=== PATIENT | female | born 1935 | race Caucasian/White ===

== ENCOUNTER 2023-08-09 06:33 | Emergency (ER) | payer MEDICARE, OTHER, SELFPAY ==
[2023-08-09 06:37] VITALS: BP 158/60
--- NOTE | 2023-08-09 06:54 | ED.GENMED ---
History of Present Illness
General
Chief Complaint: Fall
Source: spouse and family
Exam Limitations: dementia
Time Seen by Provider: 08/09/23 06:39
Travel History
Have you had any contact with someone who has COVID-19?: Unable to Answer
Do you have any symptoms of coronavirus? Fever > 100 degrees, chills, cough, shortness of breath, sore throat, loss of taste or smell, muscle aches, or headache?: No
History of Present Illness
History of Present Illness:
88-year-old female who gently slid out of her chair this morning. No trauma. Family is here primarily for ongoing weakness over the last week or so. Not because of any trauma related to this fall. There really was no fall per the family was more
of a gentle slide. Patient has no complaints. Significant dementia history. Patient's daughter felt she may have been warm the other day she complained of some fatigue with exertion.
Past History
Past History
ED Past Medical History: HTN, Hypercholesterolemia and Other (Dementia)
Social History
Tobacco: Non-smoker
Personal:
Living: with family
Employment: Retired
Review of Systems
Review of Systems
Unable to obtain full review of systems at this time due to: dementia
All Other Systems: Not applicable
Phy Exam
Physical Exam
Physical Exam:
GENERAL: Alert. Follows commands. Really not oriented at all. Had to look at her daughter for her name. No signs of scalp trauma.
EYE: Orbits normal.
NECK: Supple, nontender
ENT: Pharynx without erythema
CARDIAC: Regular rate and rhythm without any obvious murmurs.
LUNGS: Clear breath sounds,normal
ABDOMEN: Soft, without focal tenderness or distention
NEUROLOGICAL: Alert. Grossly nonfocal. But not oriented
SKIN: Warm and dry, no rash or lesion, no discoloration, skin intact.
MUSCULOSKELETAL: Chronic appearing bilateral lower extremity edema. Stockings in place
PSYCH: Normal and appropriate interaction.
Course
Orders/Labs/Results
Orders:
Orders
08/09/23 06:53
Electrocardiogram (*1) Urgent
Reason for Study: Other
Other Reason for Exam: sepsis
EKG- Treatment ONCE
IV Insert/Care/Rem.- Treatment PRN
Straight cath- Treatment ONCE
CR Chest - 2 Views Urgent
Comment:
Reason For Exam: sob fatigue
08/09/23 06:56
CT Head W/o Iv Contrast Urgent
Comment:
Reason For Exam: Weakness, dementia. Fall.
08/09/23 07:25
Basic Metabolic Panel Urgent
COVID-19 Antigen Urgent
Source: Nasal Swab
Complete Blood Count/With Diff Urgent
Troponin I Urgent
Influenza A+B Rapid Molecular Urgent
DEANGELO Source: Nasal Swab
Specimen Description:
08/09/23 08:47
Urinalysis Reflex To Culture Urgent
Date Specimen was Collected: 08/09/23
Time Specimen was Collected: 08:46
Urine Microscopic Reflex Cult Urgent
Urine Culture Urgent
DEANGELO Source: U
Specimen Description:
Date Specimen was Collected: 08/09/23
Time Specimen was Collected: 08:46
08/09/23 09:47
Case Management Consult ONCE
Case Management Consult: Discharge Planning
08/09/23 09:49
CefTRIAXone [Rocephin] 1,000 mg IV NOW STA
08/09/23 10:09
Sterile Water [Sterile Water For Injection] 10 ml .ROUTE .[facility]-MED ONE
Abnormal Lab Results
08/09/23 08/09/23
07:25 08:47
Absolute Lymphs (auto) 1.0 L 10^3/uL
(1.2-3.4)
Absolute Monos (auto) 0.7 H 10^3/uL
(0.1-0.6)
Lymphocytes % 16.9 L %
(20.5-51.1)
Monocytes % 11.8 H %
(1.7-9.3)
BUN 22 H mg/dl
(7-17)
Glucose 111 H mg/dl
(70-99)
Urine Nitrite (Reflex) Positive A
(Negative)
Leukocyte Esterase Rfl Trace A
(Negative)
Urine Bacteria (Reflex) Many A
(Negative)
08/09/23 07:25
08/09/23 07:25
Vital Signs
Initial and Last Documented VS:
Initial Vital Signs
Temp Pulse Resp BP
97.7 F 87 18 158/60
08/09/23 06:37 08/09/23 06:37 08/09/23 06:37 08/09/23 06:37
Last Documented Vital Signs
Temp Pulse Resp BP Pulse Ox
97.7 F 97 18 136/78 97
08/09/23 06:37 08/09/23 11:30 08/09/23 06:37 08/09/23 10:26 08/09/23 10:26
MDM/Problems Addressed
Differential Diagnosis Includes:
Patient here not related to any fall issue but more for general weakness fatigue possible low-grade fever recently. Workup including cardiac infectious. No signs of acute neurologic issues.
*Pulse Oximetry
Patient hypoxic: no
*EKG
Interpreted by ED Provider?: Yes
Interpretation: normal
Comparison EKG: no comparison EKG present
Heart Rate: 78
Rate: normal
Rhythm: sinus
[place]: normal axis
Interval: normal interval
QRS Pattern: normal QRS
Ischemia: no ischemia
Update Note
Update Note:
Patient cleared for discharge medically. Possible UTI. ADL issues with the family. Case management is involved. Looking for respite care.
ED Attending Note
-
Portions of this chart may have been created with voice recognition software.� Occasional wrong word or��sound alike� substitutions may have occurred due to the inherent limitations of voice recognition software.
Discharge Plan
Departure
Patient Disposition: Other
Date of Disposition: 08/09/23
Time of Disposition: 12:07
Patient with high blood pressure during this ER visit?: Yes
Discharge Problem:
General weakness, Possible UTI, Dementia history
Instructions: Urinary Tract Infection, Adult (DC), Generalized Weakness (DC), BLOOD PRESSURE
Prescriptions:
New
cefdinir 300 mg capsule
300 mg PO BID 7 Days Qty: 14 0RF
Referrals:
Ayesha Weber DO [Family Provider] - Follow up in 2-3 days
Interventions
Interventions:
*Risk Screen - Suicide Last Done: 08/09/23 06:37
*General Assessment Last Done: 08/09/23 06:37
*Neglect/Abuse Screening Last Done: 08/09/23 06:37
ED- Fall Risk Assessment Last Done: 08/09/23 15:30
*ED COVID-19 Vaccine History Last Done: 08/09/23 10:24
*Nursing Disposition Last Done: 08/09/23 15:30
ED-Musculoskeletal Assessment Last Done: 08/09/23 08:03
ED- Neurological Assessment Last Done: 08/09/23 08:03
ED-Skin Assessment Last Done: 08/09/23 08:03
Discharge Date and Time
Discharge Date/Time: 08/09/23 15:30
[2023-08-09 07:15] VITALS: BMI 38.1
[2023-08-09 07:41] LABS: % Basophils 0.7 % (0-2); % Eosinophils 3.1 % (0-6); % Immature Granulocytes 0.2 % (0-0.5); % Lymphocytes 16.9 % (20.5-51.1); % Monocytes 11.8 % (1.7-9.3); % Neutrophils 67.3 % (42.2-75.2); Absolute Eosinophils 0.2 10^3/uL (0-0.7); Absolute Monocytes 0.7 10^3/uL (0.1-0.6); Hematocrit 40.9 % (37.0-47.0); Hemoglobin 13.7 g/dL (12.0-16.0); Mean Corp Hgb Conc. 33.5 g/dL (33.0-37.0); Mean Corpuscular Volume 89.5 fL (81.0-99.0); Mean Platelet Volume 9.6 fL (7.4-10.4); Nucleated Red Blood Cells % 0 %; Platelet Count 261 10^3/uL (130-400); Red Blood Cell Count 4.57 10^6/uL (4.20-5.40); Red Cell Dist. Width 13.7 % (11.5-14.5); White Blood Cell Count 5.9 10^3/uL (4.8-10.8)
[2023-08-09 07:49] LABS: Blood Urea Nitrogen 22 mg/dl (7-17); Calcium 9.4 mg/dl (8.4-10.2); Carbon Dioxide 29 mmol/L (22-30); Chloride 104 mmol/L (98-107); Estimated Creatinine Clearance 62 ml/min; Glucose 111 mg/dl (70-99); Sodium 137 mmol/L (135-145); eGFR > 60.00
[2023-08-09 07:51] LABS: COVID-19 Antigen Negative (Negative)
[2023-08-09 07:59] LABS: Troponin I < 0.012 ng/ml
[2023-08-09 09:08] LABS: Urine Albumin Negative (Neg - Trace); Urine Bilirubin Negative (Negative); Urine Character Clear (Clear); Urine Color Yellow; Urine Glucose Negative (Negative); Urine Ketone Negative (Negative); Urine Leukocyte Trace (Negative); Urine Nitrite Positive (Negative); Urine Occult Blood Negative (Negative); Urine Specific Gravity 1.015 (<1.030); Urine Urobilinogen Negative (Neg - 1+)
[2023-08-09 09:29] LABS: Urine Mucus Few
[2023-08-09 09:30] LABS: Urine Bacteria Many (Negative); Urine Red Blood Cell 0-2 /HPF (0-2); Urine Squamous Cell 0-2 /LPF (Few)
[2023-08-09] MEDS: ROCEPHIN 1000 MG IV (10:20)
--- NOTE | 2023-08-09 10:21 | CM ---
Addendum entered by Lynn Anderson RN 08/09/23 13:32:
Plan for transition to [facility]:
[facility]
Report
[phone]

Addendum entered by Lynn Anderson RN 08/09/23 13:11:
[facility] does not do SNF respite.
Patient's is agreeable to [facility]. CM left message for [facility] admission coordinator.
Addendum entered by Lynn Anderson RN 08/09/23 12:49:
[facility] is unable to accept.
Addendum entered by Lynn Anderson RN 08/09/23 11:54:
declined [facility], and [facility]. [facility] does not do respite beds.
CM awaiting acceptance from [facility] and [facility].
Addendum entered by Lynn Anderson RN 08/09/23 11:01:
Family is interested in [facility]. Yenni from admissions will discuss private pay options with family.
Original Note:
CM spoke with patient's and daughter in room. and daughter assert that patient is becoming more difficult to manage at home due to 's physical infirmity. CM discussed discharge options as SNF under respite or home with
increased services. Patient does have palliative Care through [facility] and [facility] [facility] services 5 hours twice a week.
is agreeable to referrals to [facility], [facility], [facility], [facility] and [facility]. Referrals sent via [facility].
CM will await acceptance and discuss options with family.
[2023-08-09 10:26] VITALS: BP 136/78
--- NOTE | 2023-08-12 10:41 | ED.ADDNOTE ---
ED Addendum
ED Addendum
ED Addendum Note:
urine pos e coli
garvey sensitive
on cefdinir.
no treatment change
--- NOTE | 2023-08-18 15:49 | ED.GENMED ---
History of Present Illness
General
Chief Complaint: Fall
Source: family
Time Seen by Provider: 08/09/23 06:39
Travel History
Have you had any contact with someone who has COVID-19?: Unable to Answer
Do you have any symptoms of coronavirus? Fever > 100 degrees, chills, cough, shortness of breath, sore throat, loss of taste or smell, muscle aches, or headache?: No
History of Present Illness
History of Present Illness:
This is an addendum history and physical exam from a patient visit from 08/09/2023. Patient apparently slid out of her wheelchair. No significant trauma. ADL issues at home.
Past History
Past History
ED Past Medical History: HTN, Hypercholesterolemia, Hypothyroidism, Psychiatric (Depression), Other (Gastroparesis) and Other (Dementia)
Phy Exam
Physical Exam
Physical Exam:
GENERAL: Alert. Generally weak appearing nontoxic. No signs of scalp trauma or any other significant trauma
EYE: Orbits normal.
NECK: Supple
CARDIAC: Regular rate and rhythm without any obvious murmurs.
LUNGS: Clear breath sounds,normal
ABDOMEN: Soft, without focal tenderness or distention
NEUROLOGICAL: Alert. Dementia. Grossly nonfocal
SKIN: Warm and dry
Course
Orders/Labs/Results
Orders:
Orders
08/09/23 06:53
Electrocardiogram (*1) Urgent
Reason for Study: Other
Other Reason for Exam: sepsis
EKG- Treatment ONCE
IV Insert/Care/Rem.- Treatment PRN
Straight cath- Treatment ONCE
CR Chest - 2 Views Urgent
Comment:
Reason For Exam: sob fatigue
08/09/23 06:56
CT Head W/o Iv Contrast Urgent
Comment:
Reason For Exam: Weakness, dementia. Fall.
08/09/23 07:25
Basic Metabolic Panel Urgent
COVID-19 Antigen Urgent
Source: Nasal Swab
Complete Blood Count/With Diff Urgent
Troponin I Urgent
Influenza A+B Rapid Molecular Urgent
DEANGELO Source: Nasal Swab
Specimen Description:
08/09/23 08:47
Urinalysis Reflex To Culture Urgent
Date Specimen was Collected: 08/09/23
Time Specimen was Collected: 08:46
Urine Microscopic Reflex Cult Urgent
Urine Culture Urgent
DEANGELO Source: U
Specimen Description:
Date Specimen was Collected: 08/09/23
Time Specimen was Collected: 08:46
08/09/23 09:47
Case Management Consult ONCE
Case Management Consult: Discharge Planning
08/09/23 09:49
CefTRIAXone [Rocephin] 1,000 mg IV NOW STA
08/09/23 10:09
Sterile Water [Sterile Water For Injection] 10 ml .ROUTE .[facility]MED ONE
Abnormal Lab Results
08/09/23 08/09/23
07:25 08:47
Absolute Lymphs (auto) 1.0 L 10^3/uL
(1.2-3.4)
Absolute Monos (auto) 0.7 H 10^3/uL
(0.1-0.6)
Lymphocytes % 16.9 L %
(20.5-51.1)
Monocytes % 11.8 H %
(1.7-9.3)
BUN 22 H mg/dl
(7-17)
Glucose 111 H mg/dl
(70-99)
Urine Nitrite (Reflex) Positive A
(Negative)
Leukocyte Esterase Rfl Trace A
(Negative)
Urine Bacteria (Reflex) Many A
(Negative)
08/09/23 07:25
08/09/23 07:25
Vital Signs
Initial and Last Documented VS:
Initial Vital Signs
Temp Pulse Resp BP
97.7 F 87 18 158/60
08/09/23 06:37 08/09/23 06:37 08/09/23 06:37 08/09/23 06:37
Last Documented Vital Signs
Temp Pulse Resp BP Pulse Ox
97.7 F 97 18 136/78 97
08/09/23 06:37 08/09/23 11:30 08/09/23 06:37 08/09/23 10:26 08/09/23 10:26
*Pulse Oximetry
Patient hypoxic: no
*Critical Care Note
Total Time (30-74mins, 75-104mins- exclusive of procedures): Not Applicable
Update Note
Update Note:
Patient with ADL issues. Placement issues. Seen by case management. Referred for SNF admission. Antibiotics for possible UTI.
ED Attending Note
-
Portions of this chart may have been created with voice recognition software.� Occasional wrong word or��sound alike� substitutions may have occurred due to the inherent limitations of voice recognition software.
Discharge Plan
Departure
Patient Disposition: Other
Date of Disposition: 08/09/23
Time of Disposition: 12:07
Patient with high blood pressure during this ER visit?: Yes
Discharge Problem:
General weakness, Possible UTI, Dementia history
Instructions: Urinary Tract Infection, Adult (DC), Generalized Weakness (DC), BLOOD PRESSURE
Prescriptions:
New
cefdinir 300 mg capsule
300 mg PO BID 7 Days Qty: 14 0RF
Referrals:
Ayesha Weber DO [Family Provider] - Follow up in 2-3 days
Interventions
Interventions:
*Risk Screen - Suicide Last Done: 08/09/23 06:37
*General Assessment Last Done: 08/09/23 06:37
*Neglect/Abuse Screening Last Done: 08/09/23 06:37
ED- Fall Risk Assessment Last Done: 08/09/23 15:30
*ED COVID-19 Vaccine History Last Done: 08/09/23 10:24
*Nursing Disposition Last Done: 08/09/23 15:30
ED-Musculoskeletal Assessment Last Done: 08/09/23 08:03
ED- Neurological Assessment Last Done: 08/09/23 08:03
ED-Skin Assessment Last Done: 08/09/23 08:03
Discharge Date and Time
Discharge Date/Time: 08/09/23 15:30
== END 2023-08-09 15:30 | disposition other institution (70) ==
LOC: EMR 06:33
PROVIDERS: EMERGENCY PHYSICIAN Emergency Medicine; FAMILY PHYSICIAN Student in an Organized Health Care Education/Training Program
DX: R53.1 Weakness (principal); F03.90 Unspecified dementia, unspecified severity, without behavioral disturbance, psychotic disturbance, mood disturbance, and anxiety; W05.0XXA Fall from non-moving wheelchair, initial encounter; I10 Essential (primary) hypertension; Z11.52 Encounter for screening for COVID-19
CPT/HCPCS: 99285; 96374; 70450; 71046; 80048; 81003; 81015; 84484; 85025; 87086; 87088; 87186; 87502; 87811; 93005

== ENCOUNTER 2024-01-03 05:13 | Inpatient (IN) | payer MEDICARE, OTHER, SELFPAY ==
[2024-01-03] VITALS (83 sets, daily range): BP systolic 77–119; BP diastolic 27–93; BMI 30.6
--- NOTE | 2024-01-03 03:45 | ED.GENMED ---
History of Present Illness
General
Chief Complaint: Change in Mental Status
Source: patient, ambulance crew and skilled nursing
Exam Limitations: clinical condition and dementia
Time Seen by Provider: 01/03/24 03:15
Nursing documentation reviewed up to this point in time: agreed with
History of Present Illness
History of Present Illness:
This is an 88-year-old woman who resides at a local skilled nursing. She has history of dementia, hypertension, hypothyroidism, generalized frailty and weakness who was sent to the ED by skilled nursing staff with concern for possible dehydration stating
patient has sores in her mouth and is currently being treated for oral thrush and has had poor oral intake, difficulty swallowing despite attempts at spoon feeding fluids. There has been no report of fever, no vomiting but report of intermittent
coughing when spoonfed fluids.
Patient is apparently now nonverbal which is unlike her. She apparently normally speaks and is readily conversant.
Family is now at bedside states patient has had a slow decline in mentation, functioning, progressive weakness over the past 3 weeks coinciding with onset of oral thrush 3 weeks ago.
Family reports progression of dementia with intermittent agitation/behavioral issues, more so when care is being rendered. Mirtazapine was recently added.
Past History
Past History
ED Past Medical History: HTN, Hypercholesterolemia, Hypothyroidism, Psychiatric (Depression), Other (Gastroparesis) and Other (Dementia)
ED Past Surgical History: and Orthopedic
Social History
Tobacco: Non-smoker
Alcohol: None
Drug: None
Living: skilled nursing
Family History
Family History: Other (Noncontributory)
Phy Exam
Physical Exam
Physical Exam:
GENERAL: 88-year-old female appears chronically debilitated, bedbound. She is awake, looks to the examiner and follows a few simple commands otherwise nonverbal.
EYE: pupils equal and reactive. anicteric
NECK: Supple, nontender, no meningismus, no significant adenopathy.
ENT: Oral mucosa is significantly dry with thick white plaque covering the tongue. There is moderate pale yellow mucoid substance posterior pharynx as well as coating the soft palate and posterior tongue.
CARDIAC: Regular rate and rhythm. no murmur.
LUNGS: Clear breath sounds bilaterally, no acute respiratory distress, no wheezes/rales/rhonchi
ABDOMEN: Rotund, soft, nondistended, without focal tenderness, normoactive BS.
NEUROLOGICAL: Patient is awake and alert, nonverbal but follows a few simple commands, no focal lateralizing weakness.
SKIN: Warm and dry, normal color, skin intact. No rash. Fair turgor.
MUSCULOSKELETAL: No C/C/E. peripheral pulses are full and equal b/l. No palpable tenderness.
PSYCH: Normal and appropriate interaction.
Course
Orders/Labs/Results
Orders:
Orders
01/03/24 03:14
Electrocardiogram (*1) Urgent
Reason for Study: Fatigue / Weakness
EKG- Treatment ONCE
01/03/24 03:24
Straight cath- Treatment ONCE
0.9% Sodium Chloride 1000 ml [Nss] 1,000 ml IV BOLUS
01/03/24 03:48
Complete Blood Count/With Diff Urgent
Comprehensive Metabolic Panel Urgent
Free T4 Urgent
Lactic Acid Urgent
TSH Reflex To Free T4 Urgent
Urinalysis Reflex To Culture Urgent
Date Specimen was Collected: 01/03/24
Time Specimen was Collected: 03:41
Urine Microscopic Reflex Cult Urgent
Urine Culture Urgent
DEANGELO Source: U
Specimen Description:
Date Specimen was Collected: 01/03/24
Time Specimen was Collected: 03:41
01/03/24 04:10
CR Chest Portable - 1 View Urgent
Comment:
Reason For Exam: cough
Reason Study Needs to be Portable: Unable to Transport
01/03/24 04:58
Admit/Transfer Patient As Directed
Co-Sign Provider:
Level of Care: Inpatient admission
Assign to:: Medical/Surgical
Physician / Group: Marcus
Diagnosis: Dehydration, Thrush, LONI
Reason for Hospitalization: Dehydration, Thrush, LONI
Expected length of stay greater than two midnights?: Yes
ELOS- Estimated Length of Stay in days: 3
I certify the patient meets the requirements for IP care: Yes
01/03/24 05:00
Code Status As Directed
Resuscitation Status: Full Code
Abnormal Lab Results
01/03/24
03:48
MCHC 30.5 L g/dL
(33.0-37.0)
RDW 15.4 H %
(11.5-14.5)
Absolute Neuts (auto) 7.0 H 10^3/uL
(1.4-6.5)
Absolute Monos (auto) 1.4 H 10^3/uL
(0.1-0.6)
Lymphocytes % 12.1 L %
(20.5-51.1)
Monocytes % 14.1 H %
(1.7-9.3)
Sodium 155 H mmol/L
(135-145)
Chloride 116 H mmol/L
(98-107)
BUN 38 H mg/dl
(7-17)
Creatinine 1.2 H mg/dL
(0.6-1.0)
Glucose 135 H mg/dl
(70-99)
TSH (Reflex) 0.14 L uIU/ml
(0.47-4.68)
Free T4 2.86 H ng/dl
(0.78-2.19)
Urine Ketones Trace A
(Negative)
Ur Occult Blood Reflex 1+ A
(Negative)
Urine Nitrite (Reflex) Positive A
(Negative)
Urine Bilirubin 1+ A
(Negative)
Leukocyte Esterase Rfl 1+ A
(Negative)
Urine WBC (Reflex) 16-20 A /HPF
(0-5)
Urine Bacteria (Reflex) Many A
(Negative)
Urine Yeast Few A
(Negative)
01/03/24 03:48
01/03/24 03:48
Vital Signs
Initial and Last Documented VS:
Initial Vital Signs
Temp Pulse Resp BP Pulse Ox
98.9 F 108 22 100/72 98
01/03/24 03:42 01/03/24 03:42 01/03/24 03:42 01/03/24 03:42 01/03/24 03:42
Last Documented Vital Signs
Temp Pulse Resp BP Pulse Ox
98.9 F 108 22 100/72 98
01/03/24 03:42 01/03/24 03:42 01/03/24 03:42 01/03/24 03:42 01/03/24 03:42
MDM/Problems Addressed
Differential Diagnosis Includes:
Concern for acute dehydration, acute kidney injury, occult sepsis, UTI, pneumonia, CVA is less likely.
Borderline hypotension noted.
Labs and urinalysis are pending.
Will initiate IV fluids, check portable chest x-ray.
Consider CT of the head if labs are unrevealing.
Chronic conditions affecting care: HTN and Psychiatric illness
*Radiology
Radiology exam reviewed: preliminary read by ED provider (Portable chest x-ray is unremarkable. No evidence of infiltrate.)
*Pulse Oximetry
Patient hypoxic: no
*EKG
Interpreted by ED Provider?: Yes
Comparison EKG: no changes (Unchanged from previous August 2023 save her heart rate has increased from 78 to now 106)
Rate: tachycardiac
Rhythm: sinus
[place]: normal axis
Interval: normal interval
QRS Pattern: normal QRS
Ischemia: no ischemia
*Product Marketing Engineer Interpretation
Rate: tachycardiac
Interpretation: abnormal
Rhythm: sinus
*Critical Care Note
Total Time (30-74mins, 75-104mins- exclusive of procedures): Not Applicable
Update Note
Update Note:
01/03/2024 0436 AM
Labs reveal elevated sodium of 155 as well as elevated creatinine of 1.2 which is trended up from previous in August, most consistent with acute dehydration.
Urinalysis suspicious for UTI. Nitrite positive. Leukocyte Estrace positive. Microscopic is pending.
Will continue IV fluids, oral hygiene and admit to hospitalist service.
ED Attending Note
-
Portions of this chart may have been created with voice recognition software.� Occasional wrong word or��sound alike� substitutions may have occurred due to the inherent limitations of voice recognition software.
Discharge Plan
Departure
Patient Disposition: Admit
Date of Disposition: 01/03/24
Time of Disposition: 04:34
Admit to: Med/Surg
Admit to doctor: Marcus
Presentation/result/management discussed w/ accepting MD/DO: Hospitalist
Discharge Problem:
Acute kidney injury, Acute dehydration, Candidiasis of mouth, progressive dementia, Acute UTI
Interventions
Interventions:
*Risk Screen - Suicide Last Done: 01/03/24 03:42
*General Assessment Last Done: 01/03/24 03:42
*Neglect/Abuse Screening Last Done: 01/03/24 03:42
ED- Fall Risk Assessment Last Done: 01/03/24 04:00
*ED COVID-19 Vaccine History Last Done: 01/03/24 03:42
ED- Neurological Assessment Last Done: 01/03/24 04:00
ED- Cardiac Assessment Last Done: 01/03/24 04:00
[2024-01-03] MEDS: NSS 1000 IV ×2 (03:50→05:58)
[2024-01-03 03:56] LABS: % Basophils 0.3 % (0-2); % Eosinophils 0.5 % (0-6); % Immature Granulocytes 0.4 % (0-0.5); % Lymphocytes 12.1 % (20.5-51.1); % Monocytes 14.1 % (1.7-9.3); % Neutrophils 72.6 % (42.2-75.2); Absolute Eosinophils 0.1 10^3/uL (0-0.7); Absolute Lymphocytes 1.2 10^3/uL (1.2-3.4); Absolute Monocytes 1.4 10^3/uL (0.1-0.6); Hematocrit 45.5 % (37.0-47.0); Hemoglobin 13.9 g/dL (12.0-16.0); Mean Corp Hgb Conc. 30.5 g/dL (33.0-37.0); Mean Corpuscular Hgb 28.7 pg (27.0-31.0); Mean Corpuscular Volume 93.8 fL (81.0-99.0); Mean Platelet Volume 10.3 fL (7.4-10.4); Nucleated Red Blood Cells % 0 %; Platelet Count 255 10^3/uL (130-400); Red Blood Cell Count 4.85 10^6/uL (4.20-5.40); Red Cell Dist. Width 15.4 % (11.5-14.5); White Blood Cell Count 9.7 10^3/uL (4.8-10.8)
[2024-01-03 04:15] LABS: ALT (SGPT) 21 U/L (0-35); AST (SGOT) 36 U/L (14-36); Albumin 3.6 g/dl (3.5-5.0); Alkaline Phosphatase 83 U/L (38-126); Blood Urea Nitrogen 38 mg/dl (7-17); Carbon Dioxide 29 mmol/L (22-30); Chloride 116 mmol/L (98-107); Glucose 135 mg/dl (70-99); Sodium 155 mmol/L (135-145); Total Bilirubin 0.8 mg/dl (0.2-1.3); Total Protein 7.5 g/dl (6.3-8.2); eGFR 44.08
--- NOTE | 2024-01-03 04:20 | EDRN ---
On arrival patient had a small formed BM in her brief, patient was cleaned up and clean brief placed on patient, attempted to straight cath patient, she was grabbing at staff and screaming, was able to get some urine to send for sample, patient
cleaned up again and purwick placed. Once done cleaning up patient, had family come back to bedside with her.
[2024-01-03 04:21] LABS: Urine Albumin Negative (Neg - Trace); Urine Bilirubin 1+ (Negative); Urine Character Slightly Cloudy (Clear); Urine Color Amber; Urine Glucose Negative (Negative); Urine Ketone Trace (Negative); Urine Leukocyte 1+ (Negative); Urine Nitrite Positive (Negative); Urine Occult Blood 1+ (Negative); Urine Specific Gravity 1.025 (<1.030); Urine Urobilinogen 1+ (Neg - 1+)
[2024-01-03 04:45] LABS: TSH Reflex To Free T4 0.14 uIU/ml (0.47-4.68)
--- NOTE | 2024-01-03 04:45 | EDRN ---
Provided some mouth care, patient has large amount of thick mucus like substance on her tongue yellow in color
[2024-01-03 04:52] LABS: Urine Amorphous Seen; Urine Hyaline Cast >15 /LPF (0-2); Urine Squamous Cell >30 /LPF (Few)
[2024-01-03 04:53] LABS: Urine Bacteria Many (Negative); Urine Triple Phosphate Crystal Seen; Urine Yeast Few (Negative)
[2024-01-03 04:55] LABS: Urine White Cell 16-20 /HPF (0-5)
--- NOTE | 2024-01-03 04:55 | EDRN ---
Dr. Velazquez in at bedside working on admission
[2024-01-03 04:58] LABS: Urine Mucus Many
--- NOTE | 2024-01-03 05:05 | HPS.HSE ---
Addendum entered and electronically signed by Pete Velazquez DO 01/03/24 06:11:
A/P: Septic Shock
UTI
Patient with persistent hypotension in the ED despite fluid bolus x 2 liters.
Levophed initiated for BP support.
UA potentially c/w infection and verbal report from ED staff is purulent appearing urine.
Begin ceftriaxone for now pending culture data.
Reviewed with family - now present at the bedside.
Continue current treatment and follow for improvement.
Patient with advanced dementia and recent decline.
Family plans to bring patient's in later today and may address / adjust goals of care at that time.
Original Note:
Family Physician
-
Family Physician: Fabrizio Sullivan
Chief Complaint
-
Unable to eat
History of Present Illness
Patient is an 88y F with PMH significant for advanced dementia who presents to ED from [place] for evaluation of inability to eat, oral sores and dehydration. No history is able to be obtained from patient due to apparent baseline level of dementia.
History obtained from IN record and discussion with ED staff. Patient reportedly developed oral 'sores' at the IN some time ago. She was started on 'Magic Mouthwash' at the IN on 12/15. Staff notes that she has continued not to take in PO solids
or liquids. She has been progressively more frail / weak appearing. Staff has been trying to encourage intake with spoon feedings. This evening, patient had coughing spell during one such attempt which prompted evaluation in the ED.
In the ED, patient appears comfortable. She is awake and will follow commands. She denies any pain at present.
Medical History
Past Medical History
Past Medical History: Reports Other
Additional Past Medical History:
Dementia with Behavioral Disturbance
Hypothyroidism
Hypertension
Osteoporosis
Past Surgical History: Reports Other (Unknown)
Social History
Unable to obtain full social history at this time due to: Dementia
Family History
Family History: Unable to Obtain
Allergies / Home Medications
Allergies reflects when Allergies were last updated in [employer].
Home Medications with original date entered in [employer]
Allergy/Medication List:
Allergies
Allergy/AdvReac Type Severity Reaction Status Date / Time
bee venom protein (honey bee) Allergy Swelling Verified 01/03/24 03:46
Home Medications
acetaminophen 325 mg tablet 650 mg PO Q4H PRN mild pain / fever 01/03/24
alendronate 70 mg tablet 70 mg PO QWEEK 01/03/24
aspirin 81 mg chewable tablet 81 mg PO DAILY 01/03/24
biotin 5 mg tablet 5 mg PO DAILY 01/03/24
calcium carbonate 500 mg-vitamin D3 10 mcg (400 unit) tablet (Calcium 500 + D) 1 tab PO BID 01/03/24
cholecalciferol (vitamin D3) 50 mcg (2,000 unit) chewable tablet 50 mcg PO DAILY 01/03/24
citalopram 10 mg tablet 20 mg PO DAILY 01/03/24
coQ10 (ubiquinol) 200 mg capsule 200 mg PO BID 01/03/24
levothyroxine 25 mcg tablet 25 mcg PO DAILY 01/03/24
lovastatin 20 mg tablet 20 mg PO QPM 01/03/24
magnesium 200 mg tablet 200 mg PO DAILY 01/03/24
metoprolol succinate 25 mg tablet,extended release 24 hr 25 mg PO DAILY 01/03/24
mirtazapine 7.5 mg tablet 7.5 mg PO BID 01/03/24
multivitamin 1 tab PO DAILY 01/03/24
nystatin 100,000 unit/gram topical powder 1 applic topical DAILY 01/03/24
omega 8-axs-pok-fish oil 300 mg-1,000 mg capsule (Fish Oil) 1 cap PO BID 01/03/24
Review of Systems
-
History Source: Patient (Very limited. Patient denies pain.)
A 12 point ROS was completed and negative except as noted: No
Physical Exam
Vital Signs
Vital Signs
Temp Pulse Resp BP Pulse Ox
98.9 F 108 22 100/72 98
01/03/24 03:42 01/03/24 03:42 01/03/24 03:42 01/03/24 03:42 01/03/24 03:42
Physical Exam
General: Other (88y F in no obvious distress. Awake and interactive.)
HEENT: Other (Edentulous. Dry, white coating on tongue. No visible ulcerations / erosions. Mucoid secretions in posterior oropharynx.)
Respiratory: Other (Decreased at bases - otherwise clear.)
Cardiac: S1/S2 and Regular Rhythm; No Murmur
GI: Soft, Non Tender, Non Distended and Normal Bowel Sounds
Musculoskeletal: No Clubbing, No Cyanosis and No Edema
Neuro: Awake and Alert; No Oriented
Psych: No Agitated
Laboratory Results
-
01/03/24 03:48
01/03/24 03:48
Laboratory Results
Lactic Acid 2.0 mmol/L (0.7-2.0) 01/03/24 03:48
Total Bilirubin 0.8 mg/dl (0.2-1.3) 01/03/24 03:48
AST 36 U/L (14-36) 01/03/24 03:48
ALT 21 U/L (0-35) 01/03/24 03:48
Alkaline Phosphatase 83 U/L (38-126) 01/03/24 03:48
Impression/Plan
-
A/P: Patient is an 88y F with PMH significant for advanced dementia who presents to ED from [place] for evaluation of decreased PO intake and weakness.
Dehydration
LONI
- Admit for further evaluation and treatment.
- Na = 155 and SCr = 1.2 compared to known baseline of 0.8.
- IVFs with 1/4NS for now. Follow for improvement in Na and SCr.
- Evaluate / treat oral intake issues as noted below.
Oral Thrush
- Some degree of oral thrush, though also with mucoid secretions, etc.
- Do not appreciate any gross ulcerations.
- Check SHEILA.
- Begin nystatin S/S as well as fluconazole for now given extent.
- Routine oral care.
- Follow for clinical improvement.
- Speech evaluation to determine most appropriate diet.
Benign Hypertension
- Continue metoprolol with holding parameters to avoid hypotension.
Hypothyroidism
- Current TFTs suggest over-replacement of T4
- Hold T4 supplementation for now.
- Follow for any clinical changes.
- Repeat TFTs in 4-6 weeks off of medication.
Senile Dementia with Behavioral Disturbance
- Stable. Not agitated / anxious at present.
- Continue BID mirtazapine.
- Hold citalopram acutely.
- Monitor for any acute delirium, etc during hospitalization.
Osteoporosis
- Hold alendronate acutely given thrush / problems with oral intake.
DVT Prophylaxis: SCDs
Code Status: Full
[2024-01-03 05:14] LABS: Free T4 2.86 ng/dl (0.78-2.19)
--- NOTE | 2024-01-03 05:30 | EDRN ---
Patients BP started trending down to low 90's and then into the 80s systolic, poke with Dr. Pierson about giving patient more fluids, 2nd liter of Normal saline placed up, tiger texted Dr. Velazquez to inform him of the patients blood pressure trending
down, waiting new orders at this time.
[2024-01-03] MEDS: LEVOPHED 250 IV ×2 (05:56→19:14)
--- NOTE | 2024-01-03 05:57 | EDRN ---
After 2nd liter completes, BP continues to trend down, Dr. Velazquez back at bedside seeing patient and speaking with family, Levophed ordered and started on patient.
[2024-01-03] MEDS: ROCEPHIN 1000 MG IV (06:20)
[2024-01-03] MEDS: STERILE WATER FOR INJECTION 10 ML IV (06:21)
--- NOTE | 2024-01-03 08:06 | PTCARENOTE ---
patient received from ED, assessments per work list. patient drowsy, oriented to self only. skin hot and dry, crusted oral membranes. levophed per work list. incontinent scant dark urine, incontinent small amount loose stool. monitor sinus
tachycardia. bed alarm activated
[2024-01-03 08:34] LABS: INR 1.35; PT 16.5 Sec (11.4-14.6)
[2024-01-03] MEDS: LR 1000 IV ×3 (08:49→21:38)
--- NOTE | 2024-01-03 09:17 | CON.INTV ---
Consultation
Consultation Request
Date/Time Consultation Requested: 01/02
Date/Time Consultation Performed: 01/02
Reason for Consultation: Critical care
Medical History
-
History of Present Illness:
History obtained from family members at bedside, medical records. Patient not a good historian with dementia. 88-year-old female who was brought to [facility] 01/03/2024 from the snf. Patient has had issues with oral intake. There
was a concern regarding dehydration. Per ED records, patient has had slow decline over the last 3 weeks, decrease in mentation, oral thrush. She had recent admission of mirtazapine and for progressive dementia with behavioral issues. Upon arrival
to [facility], afebrile, pulse 108, breathing at 22, blood pressure 100/72, 98%. EKG with tachycardia. Sodium level was found to be 155, creatinine 1.2. Patient was given IV fluids. UA abnormal, started on ceftriaxone. Patient was
initially admitted to IMU but then developed progressive hypotension requiring pressors and admitted to ICU 01/03/2024
Additional history obtained from daughter. Patient has been using a walker but over the last month has been essentially wheelchair-bound. She gets agitated with any type of movement, changing or cleaning. She has had poor intake. She was seen by
a dentist earlier, was diagnosed with thrush but also noted to have an ulcerated lesion in her posterior oropharynx
.
PMH: Hypertension, hypercholesterolemia, hypothyroidism, dementia, history of gastroparesis. History of
Past Medical History
Past Medical History: None (See above)
Past Surgical History: None (See above)
Social History
Tobacco: Non-smoker
Alcohol: None
Drug: None
Personal:
Living: Halfway
Family History
Family History: Other (Noncontributory)
Allergies / Home Medications
Allergies
Allergy/AdvReac Type Severity Reaction Status Date / Time
bee venom protein (honey bee) Allergy Swelling Verified 01/03/24 03:46
Home Medications
�Medication �Instructions �Recorded �Confirmed �Last Taken �Type
acetaminophen 325 mg tablet 650 mg PO Q4H PRN mild pain / fever 01/03/24 01/03/24 Unknown History
alendronate 70 mg tablet 70 mg PO QWEEK 01/03/24 01/03/24 Unknown History
aspirin 81 mg chewable tablet 81 mg PO DAILY 01/03/24 01/03/24 Unknown History
biotin 5 mg tablet 5 mg PO DAILY 01/03/24 01/03/24 Unknown History
calcium carbonate 500 mg-vitamin 1 tab PO BID 01/03/24 01/03/24 Unknown History
D3 10 mcg (400 unit) tablet
(Calcium 500 + D)
cholecalciferol (vitamin D3) 50 50 mcg PO DAILY 01/03/24 01/03/24 Unknown History
mcg (2,000 unit) chewable tablet
citalopram 10 mg tablet 20 mg PO DAILY 01/03/24 01/03/24 Unknown History
coQ10 (ubiquinol) 200 mg capsule 200 mg PO BID 01/03/24 01/03/24 Unknown History
levothyroxine 25 mcg tablet 25 mcg PO DAILY 01/03/24 01/03/24 Unknown History
lovastatin 20 mg tablet 20 mg PO QPM 01/03/24 01/03/24 Unknown History
magnesium 200 mg tablet 200 mg PO DAILY 01/03/24 01/03/24 Unknown History
metoprolol succinate 25 mg 25 mg PO DAILY 01/03/24 01/03/24 Unknown History
tablet,extended release 24 hr
mirtazapine 7.5 mg tablet 7.5 mg PO BID 01/03/24 01/03/24 Unknown History
multivitamin 1 tab PO DAILY 01/03/24 01/03/24 Unknown History
nystatin 100,000 unit/gram topical 1 applic topical DAILY 01/03/24 01/03/24 Unknown History
powder
omega 4-omd-fpq-fish oil 300 1 cap PO BID 01/03/24 01/03/24 Unknown History
mg-1,000 mg capsule (Fish Oil)
Review of Systems
Vitals / Labs / Diagnostic Testing
Vital Signs
Temp Pulse Resp BP Pulse Ox
98.5 F 101 16 105/70 100
01/03/24 08:06 01/03/24 08:00 01/03/24 08:00 01/03/24 08:00 01/03/24 07:57
Lab Data
01/03/24 03:48
01/03/24 03:48
Laboratory Results
01/03/24
07:59
PT 16.5 H
INR 1.35
APTT 32.0
Diagnostic Testing:
Assessment
-
88-year-old female snf resident, history of dementia, hypertension, hypothyroid who presents with failure to thrive, mental status changes, likely dehydration. Patient was given IV fluids, IV antibiotics. Developed worsening hypotension,
admitted to ICU, currently on norepinephrine
Hypotension, suspected sepsis
Abnormal UA
Hypernatremia, likely prerenal
Acute renal insufficiency, creatinine 1.2
Posterior pharyngeal ulcer
Mild thrush
Conditions present prior to admission
Hypertension/hyperlipidemia
Dementia
NH res (memory impairment unit)
DNR
Plan/recommendations
At this time, patient appears to be comfortable but likely prerenal with dry mucous membranes, renal insufficiency
Family relays poor p.o. intake over the past 3 to 4 weeks
Patient has had progressive decline in mentation, more confused, agitated with simple movement, cleaning, changing clothes
Poor oral intake also noted
Moving forward
Continue with IV fluids, pressors as needed
Continue lactated Ringer's
Suspect combination of prerenal state and sepsis, abnormal UA noted
History of E. coli UTI noted in the past
Urine culture pending
Hold beta-ian
I am not convinced that there is thrush on exam. There is a left posterior oropharyngeal ulcer per my review
Consider discontinuing Diflucan. Will review with primary service
Would recommend Dobbhoff tube placement. Reviewed with family. They are unsure if this is what they want to pursue at this time.
I have clarified the patient is DNR
will bring in living well
Family appears to be more interested in making sure patient is comfortable
Continue with supportive care at this time
DVT prophylaxis: Enoxaparin and sequential teds
GI prophylaxis:Not indicated
Reviewed with critical care nursing, pharmacy
Updated daughter and at length at bedside
All questions answered
TCCT 31 min
[2024-01-03] MEDS: MYCOSTATIN ORAL SUSPENSION PO (09:32)
--- NOTE | 2024-01-03 09:35 | PTOTSP ---
Speech Language Pathology
Pt seen for clinical bedside swallow evaluation. Per family at bedside, pt has not been eating/drinking for approximately 2 weeks. P.O. trials of thin liquids (room temperature and cold) and puree provided. With initial thin liquids via straw
(room temperature), oral holding noted. Pt swallowed x5 with entire bolus remaining in oral cavity. Suctioned from oral cavity. Trialed again with full oral holding. Trialed puree with no attempts at bolus manipulation. Eventually suctioned
from oral cavity. Buccal/laryngeal massage, oral prep set, verbal cueing, empty spoon to lips, and downward lingual pressure on spoon ineffective at aiding in initiating swallow. Trialed cold water via straw. Pt demonstrated liking the cold with
facial expression. Initiated swallow x2. Suspect cold temperature provided tactile feedback and aided in swallow initiation. No overt signs of aspiration with minimal swallowed.
Suspect oral dysphagia with oral holding is related to cognitive status, although recent oral thrush is confounding factor.
Recommend:
(1) Continue thin liquids as tolerated (currently ordered clear liquids)
(2) Aspiration precautions: may respond best to cold liquids, single sips via straw, if oral holding suction from oral cavity, if occurs x2 then defer meal tray.
(3) Non-oral meds as able given inconsistent swallow initiation
(4) RETAIL FINANCIAL ANALYST to continue to follow
[2024-01-03] MEDS: DIFLUCAN 200 MG 100 IV (10:35)
--- NOTE | 2024-01-03 12:32 | PTCARENOTE ---
patient reassessed. drowsy, but arouses. oriented to name only. attempted clear liquid by teaspoon. patient only held it in her mouth, requiring oral suction to remove. levophed per work list. bladder scan as noted. post bladder scan, patient voided
shadi concentrated urine via purewick. family at bedside
--- NOTE | 2024-01-03 12:54 | CM ---
CM following re: discharge planning.
Discussed in Rounds, reviewed pt's chart, met with pt. Pt's , pt's daughter Kaela and son at bedside.
Pt is an 88 year old female, admitted with primary dx of Hypotension, suspected sepsis. Abnormal UA.
Pt is a not a great historian, information obtained from daughter Kaela, and son. Per family pt has been diagnosed with Dementia 4 years ago, has been a resident of [facility] memory care unit for 3 months, required assistance with
transferring. Pt has supportive daughter and a son. lives alone in his house and has POA.
Per daughter, she feels that pt will be able to return back to [facility] memory care unit and pt might be able to go to a SNF for a short term rehab.
PT and OT evaluations are pending, pt is not stable for PT/OT today.
PCP: Fabrizio Sullivan
Pharmacy: [facility].
D/C plan: return back to [facility] memory care unit vs [facility] SNF.
CM will follow with discharge plan updates as hospitalization progresses
[2024-01-03] MEDS: MYCOSTATIN ORAL SUSPENSION 5 ML PO (13:19)
--- NOTE | 2024-01-03 13:45 | W.PN.UPDATE ---
Update Note
Progress Note Update
Non-billable entry (H&P signed today 5 AM)
Patient did not pass ST evaluation, DHT indicated (with restraints) but family not ready for that at this time
Currently was on thrush treatment which is now stopped as not clinically present. Also noted to have oral ulcerated lesion
receiving IVF for now
Assessment:
Dehydration
LONI
- continue 1/4 NS for now and follow repeat BMP at 2pm
septic shock from UTI
hypovolemic from dehydration
- on pressors; wean as able
UTI
- continue Rocephin, day 1
- follow cultures
dry mouth, ulcerated lesion
- no evidence of thrush
- stop Diflucan, Nystatin
- routine oral care
Benign Hypertension
- continue metoprolol with holding parameters to avoid hypotension.
Hypothyroidism
- Current TFTs suggest over-replacement of T4
- Hold T4 supplementation for now
- Follow for any clinical changes.
- Repeat TFTs in 4-6 weeks off of medication.
Senile Dementia with Behavioral Disturbance
- Stable. Not agitated / anxious at present.
- Continue BID mirtazapine.
- Hold citalopram acutely.
- Monitor for any acute delirium, etc during hospitalization.
Osteoporosis
- Hold alendronate acutely given thrush / problems with oral intake.
DVT Prophylaxis: SCDs
Code Status: now DNR
[2024-01-03 14:27] LABS: Blood Urea Nitrogen 31 mg/dl (7-17); Calcium 8.8 mg/dl (8.4-10.2); Carbon Dioxide 27 mmol/L (22-30); Chloride 120 mmol/L (98-107); Estimated Creatinine Clearance 42 ml/min; Glucose 143 mg/dl (70-99); Potassium 3.7 mmol/L (3.5-5.1); Sodium 152 mmol/L (135-145); eGFR 54.87
--- NOTE | 2024-01-03 16:20 | PTCARENOTE ---
patient reassessed. lungs with coarse diminished breath sounds. shadi urine noted. purewick in place. pocketing liquids. aspiration precautions maintained. labs sent. hospitalist updated. attempted levophed wean, required increased for MAP to remain
>65
[2024-01-03] MEDS: LOVENOX 40 MG SC (16:56)
--- NOTE | 2024-01-03 20:30 | PTCARENOTE ---
rec'd patient. family at bedside. pt disoriented. levo gtt infusing to maintain MAP >65. SR on monitor. on RA, coarse breath sounds noted. purewick in place. IVF infusing. safe environment maintained. call toure within reach of pt and family, care
ongoing.
[2024-01-04] VITALS (43 sets, daily range): BP systolic 80–129; BP diastolic 43–84; BMI 30.4
--- NOTE | 2024-01-04 00:30 | PTCARENOTE ---
pt reassessed, no changes noted. levo gtt titrated to maintain MAP goal, see worklist. on RA, SR on monitor, IVF infusing. call toure within reach, care ongoing.
[2024-01-04 05:10] LABS: Hematocrit 39.7 % (37.0-47.0); Hemoglobin 12.4 g/dL (12.0-16.0); Mean Corp Hgb Conc. 31.2 g/dL (33.0-37.0); Mean Corpuscular Hgb 29.1 pg (27.0-31.0); Mean Corpuscular Volume 93.2 fL (81.0-99.0); Mean Platelet Volume 10.1 fL (7.4-10.4); Platelet Count 218 10^3/uL (130-400); Red Blood Cell Count 4.26 10^6/uL (4.20-5.40); Red Cell Dist. Width 15.9 % (11.5-14.5); White Blood Cell Count 7.9 10^3/uL (4.8-10.8)
--- NOTE | 2024-01-04 05:20 | PTCARENOTE ---
AM labs sent. pt with minimal UOP overnight, BS for 295ml this morning. purewick in place. pt repositioned with pillows. oral care provided. care ongoing.
[2024-01-04 05:33] LABS: Blood Urea Nitrogen 23 mg/dl (7-17); Calcium 8.6 mg/dl (8.4-10.2); Carbon Dioxide 27 mmol/L (22-30); Chloride 119 mmol/L (98-107); Estimated Creatinine Clearance 46 ml/min; Glucose 131 mg/dl (70-99); Potassium 3.6 mmol/L (3.5-5.1); Sodium 152 mmol/L (135-145); eGFR > 60.00
--- NOTE | 2024-01-04 07:18 | W.PN.INTV ---
Addendum entered and electronically signed by Pedro Simpson MD 01/04/24 14:43:
Plans for transition to hospice noted
Await decision by case management/hospice team
Patient transferred out of ICU. We will sign off. Please call with questions
Original Note:
Today's Communication / Plan
Recommendations
Continue with supportive care, wean pressors as able
Change IV fluids to D5, free water repletion
Wean pressors as able
Bladder scan, incontinence noted
Ongoing discussion regarding goals of care
Assessment
-
88-year-old female intermediate resident, history of dementia, hypertension, hypothyroid who presents with failure to thrive, mental status changes, likely dehydration. Patient was given IV fluids, IV antibiotics. Developed worsening hypotension,
admitted to ICU, currently on norepinephrine
Hypotension, suspected sepsis
Abnormal UA
Hypernatremia, likely prerenal
Acute renal insufficiency, creatinine 1.2
Posterior pharyngeal ulcer
Mild thrush
Conditions present prior to admission
Hypertension/hyperlipidemia
Dementia
NH res (memory impairment unit)
DNR
Plan/recommendations
At this time, patient appears to be comfortable but remains critically ill, on pressors.
Family relays poor p.o. intake over the past 3 to 4 weeks
Unfortunate, unable to take pills, unable to swallow. She pockets the pills
Patient has had progressive decline in mentation, more confused, agitated with simple movement, cleaning, changing clothes
Poor oral intake also noted
According to family at bedside, mental status has not changed since hospital stay
Moving forward
Continue with IV fluids, pressors as needed
Continue lactated Ringer's
Suspect combination of prerenal state and sepsis, abnormal UA noted
History of E. coli UTI noted in the past
Urine culture negative to date
Hold beta-ian
I am not convinced that there is thrush on exam. There is a left posterior oropharyngeal ulcer per my review
Antifungal has been discontinued
Would recommend Dobbhoff tube placement. Reviewed with family.
They are adamant about no nutrition
I have clarified the patient is DNR
Family appears to be more interested in making sure patient is comfortable
They would like hospice involved. They would like patient to be in hospice at [facility]
Continue with supportive care at this time
DVT prophylaxis: Enoxaparin and sequential teds
GI prophylaxis:Not indicated
Reviewed with critical care nursing, pharmacy
Updated son and at length at bedside
All questions answered
TCCT 31 min
Subjective Dataa
Subjective Data
Date of Service:
Date of Service: January 04, 2024
Subjective:
Patient without any significant changes. She denies shortness of breath, chest pain, chest tightness, nausea, abdominal pain. She is unable to take any pills, cannot take any p.o. She remains on pressors, critically ill
Objective Data
Data Reviewed
Vital Signs / I&O / Oxygen:
Vital Signs
Temp Pulse Resp BP Pulse Ox
97.6 F 86 16 106/57 93
01/04/24 07:07 01/04/24 06:30 01/04/24 06:30 01/04/24 06:30 01/04/24 06:30
Intake and Output
01/03/24 01/04/24 01/05/24
06:59 06:59 06:59
Intake Total 3191.5 / 3191.5
Output Total 250 / 250
Balance 2941.5 / 2941.5
SaO2 93
Physical Exam
General: Comfortable
HEENT: Normocephalic, Anicteric, Other (Left posterior oropharyngeal ulcer) and Other (Edentulous)
Cardiovascular: S1-S2, Regular Rhythm, Murmur (n), Rub (n) and Calf Tenderness (n)
Respiratory: Wheeze (n), Crackles (n), Rhonchi (n) and Non-Labored Respirations
GI: Soft, Non Distended and Non Tender
Neurology: Awake, Alert and Other (Confused, does not know she is in the hospital. Does not recognize family at times)
Skin: Good Color and Cyanosis (n)
Labs/Micro/Reports
Lab Data
01/04/24 04:50
01/04/24 04:50
Laboratory Results
01/03/24
07:59
PT 16.5 H
INR 1.35
APTT 32.0
[2024-01-04] MEDS: ROCEPHIN 1000 MG IV (07:44)
[2024-01-04] MEDS: FLUSH (NSS) 1 FLUSH IV (07:44)
[2024-01-04] MEDS: STERILE WATER FOR INJECTION 10 ML IV (07:44)
[2024-01-04] MEDS: LR 1000 IV (08:08)
--- NOTE | 2024-01-04 08:14 | PTCARENOTE ---
Patient received, assessment and care per work list. Dr. Simpson at bedside discussing goals of care with family. Titrating levo per order.
[2024-01-04] MEDS: D5W 1000 IV (09:21)
--- NOTE | 2024-01-04 10:50 | PTOTSP ---
Speech Language Pathology
Pt seen for dysphagia tx. Pt sitting upright in bed upon arrival, smiling at FOUNDRY MANAGER. Son present at bedside. Oral care completed, to which pt was resistant. Some mild agitation noted post oral care. Provided thin liquids via straw/cup. Pt
initiating swallows this date, which is an improvement from yesterday. Multiple swallows noted per bolus. Consistent coughing noted with straw sips, suspect aspiration. No coughing noted with cup sips. Pt refused solid trials multiple times,
with increased agitation when offered.
While pt is initiating swallows at this time, suspect this will wax and wane. Even if she consistently initiates swallows, she is unlikely to accept enough P.O. to maintain nutrition/hydration. Spoke with length at son re: above and strategies.
Recommend:
(1) Continue thin liquids as tolerated (currently ordered clear liquids)
(2) Aspiration precautions: may respond best to cold liquids, single sips via CUP only (no straw), if oral holding suction from oral cavity, if occurs x2 then defer meal tray.
(3) Non-oral meds as able given inconsistent swallow initiation
(4) FOUNDRY MANAGER to continue to follow
--- NOTE | 2024-01-04 11:13 | HOSPNOTE ---
Spoke with daughter Kaela and the plan is to meet with family at 2pm to discuss goals of care, hospice and the philosophy. More information to follow.
--- NOTE | 2024-01-04 12:41 | PTCARENOTE ---
Patient reassessed, Levophed weaned off. Speech therapist gave small amount of fluids tolerated well
--- NOTE | 2024-01-04 13:41 | PTCARENOTE ---
Patient hypotensive, discontinued levophed, spoke with Doctor and engine head repairer and will DC levophed.
--- NOTE | 2024-01-04 13:56 | W.PN.HOSP.TC ---
Today's Communication/Plan
-
hospice evaluation/meeting 2pm
Assessment / Plan
Assessment / Plan
Assessment:
Dehydration
LONI
- improved with IVF
septic shock from UTI
hypovolemic from dehydration
- wean fluids and pressors
UTI
- continue Rocephin, day 2/3
- follow cultures
dry mouth, ulcerated lesion
- no evidence of thrush
- stop Diflucan, Nystatin
- routine oral care
Benign Hypertension
- continue metoprolol with holding parameters to avoid hypotension.
Hypothyroidism
- Current TFTs suggest over-replacement of T4
- Hold T4 supplementation for now
- Follow for any clinical changes.
- Repeat TFTs in 4-6 weeks off of medication.
Senile Dementia with Behavioral Disturbance
- Stable. Not agitated / anxious at present.
- Continue BID mirtazapine.
- Hold citalopram acutely.
- Monitor for any acute delirium, etc during hospitalization.
Osteoporosis
- Hold alendronate acutely given thrush / problems with oral intake.
DVT Prophylaxis: SCDs
Code Status: now DNR
Dispo: hospice consulted. meeting today at 2pm.
Anticipated Discharge: Within 24 hours
Subjective/Interval History
-
Date of Service: January 04, 2024
refusing oral intake
hypotensive off pressors
family pursuing hospice
Objective Data
-
Labs:
Laboratory Results
01/04/24
04:50
WBC 7.9
Hgb 12.4
Hct 39.7
Plt Count 218
Sodium 152 H
Potassium 3.6
Chloride 119 H
Carbon Dioxide 27
BUN 23 H
Creatinine 0.9
Glucose 131 H
Calcium 8.6
Vital Signs:
Vital Signs
Temp Pulse Resp BP Pulse Ox
97.7 F 91 11 98/84 97
01/04/24 11:58 01/04/24 12:15 01/04/24 12:15 01/04/24 12:15 01/04/24 11:15
I&O
01/03/24 01/04/24 01/05/24
06:59 06:59 06:59
Intake Total 3191.5 / 3331.5 741.4 / 741.4
Output Total 250 / 250
Balance 2941.5 / 3081.5 741.4 / 741.4
Physical Exam
-
General: Appears Chronically Ill
HEENT: Normocephalic and Atraumatic
Respiratory: Negative Wheezes
Cardiac: Regular Rhythm and S1/S2
Neuro: Awake
Psych: Calm and Apparent Dementia
Data Reviewed
-
Total Time Spent with Patient (in minutes): 41
Labs: Labs Reviewed by me
--- NOTE | 2024-01-04 14:04 | CM ---
CM following re: discharge planning.
Reviewed pt's chart, met with pt and pt's family at bedside.
Hospice consult noted. Discussed it with pt, hospice preferred and family requested pt returns back to [facility] memory care unit with hospice care.
A referral to hospice made, TTed jose Hamilton.
CM faxed pt's clinical to [facility] memory care unit, spoke to JUDD Cohen.
D/C plan; return back to [facility] SNF with hospice.
CM will follow with discharge plan updates.
--- NOTE | 2024-01-04 14:47 | PTCARENOTE ---
patient transitioned to comfort care, fluids d/c. no changes in assessments
--- NOTE | 2024-01-04 14:51 | HOSPNOTE ---
Spoke at length with family, They are in agreement with hospice and the philosophy. The plan is for the patient to go to [facility] on hospice services with hospice. The patient will be transferred out of ICU and I will check on patient tomorrow
prior to discharge. CM and Attending aware of plan and in agreement. Transport is needed and will be scheduled at 1pm. OOH DNR is needed on chart.
--- NOTE | 2024-01-04 16:02 | TRANSFER ---
transfer to [address] [place] [address] without issues, family at bedside. report to JUDD Sauceda
[2024-01-05 07:59] VITALS: BP 99/53
[2024-01-05] MEDS: ROCEPHIN 1000 MG IV (08:35)
[2024-01-05] MEDS: STERILE WATER FOR INJECTION 10 ML IV (08:36)
--- NOTE | 2024-01-05 08:48 | PTOTSP ---
Reviewed chart and note plans to dc on hospice today. PT will sign off.
--- NOTE | 2024-01-05 10:26 | CM ---
Addendum entered by Lakshmi Rosario 01/05/24 11:16:
Facility requested that patient have a Covid-19 test today. Attending notified and acknowledged text
Addendum entered by Lakshmi Rosario 01/05/24 11:15:
[facility]
report # [phone]
fax # [phone]
Original Note:
Plan: discharge to [facility] with Hospice services
Per environmental conservation officer; SNF requested a 3 PM ambulance pickle solution maker for transport to SNF
[2024-01-05 12:45] LABS: COVID-19 Antigen Negative (Negative)
--- NOTE | 2024-01-05 14:09 | W.PN.HOSP.TC ---
Today's Communication/Plan
-
dc to SNF/hospice
Assessment / Plan
Assessment / Plan
Assessment:
Dehydration
LONI
- improved with IVF
septic shock from UTI
hypovolemic from dehydration
- off fluids and pressors
UTI
- finished 3 days of Abx
dry mouth, ulcerated lesion
- no evidence of thrush
- stop Diflucan, Nystatin
- routine oral care
Benign Hypertension
- continue metoprolol with holding parameters to avoid hypotension.
Hypothyroidism
- Current TFTs suggest over-replacement of T4
- Hold T4 supplementation for now
- Follow for any clinical changes.
- Repeat TFTs in 4-6 weeks off of medication.
Senile Dementia with Behavioral Disturbance
- Stable. Not agitated / anxious at present.
- Continue BID mirtazapine.
- Hold citalopram acutely.
- Monitor for any acute delirium, etc during hospitalization.
Osteoporosis
- Hold alendronate acutely given thrush / problems with oral intake.
DVT Prophylaxis: SCDs
Code Status: now DNR
Dispo: dc today to SNF on hospice
More than 30 minutes spent in discharge including
Final examination of the patient
Summarizing hospital stay
Instructions for continuing care to all relevant caregivers
Preparation of discharge records, prescriptions, and referral forms
Total time spent (in minutes):42
Anticipated Discharge: Today
Subjective/Interval History
-
Date of Service: January 05, 2024
for hospice dc 3pm
Objective Data
-
Vital Signs:
Vital Signs
Temp Pulse Resp BP Pulse Ox
97.7 F 97 16 99/53 94
01/05/24 07:59 01/05/24 07:59 01/05/24 07:59 01/05/24 07:59 01/05/24 13:29
I&O
01/04/24 01/05/24 01/06/24
06:59 06:59 06:59
Intake Total 3191.5 / 3331.5 2171.4 / 2171.4
Output Total 250 / 250 300 / 300
Balance 2941.5 / 3081.5 1871.4 / 1871.4
Physical Exam
-
General: No Apparent Distress
HEENT: Normocephalic and Atraumatic
Respiratory: Negative Wheezes
Cardiac: Regular Rhythm and S1/S2
GI: Soft
Psych: Calm and Apparent Dementia
Data Reviewed
-
Total Time Spent with Patient (in minutes): 42
Labs: Labs Reviewed by me
--- NOTE | 2024-01-05 14:32 | W.DS.TRANS ---
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
-
Discharge Instructions:
Discharge Diagnosis/Procedures UTI/Dementia/LONI
Diet As tolerated
Activity No restrictions,As tolerated
Other Services Hospice
Instructions:
Stand-Alone Forms:
Changes to Home Medications: No
Discharge Medications:
DC Medications w/original date entered in [facility]Collect
acetaminophen 325 mg tablet 650 mg PO Q4H PRN mild pain / fever 01/03/24
alendronate 70 mg tablet 70 mg PO QWEEK OSTEOPOROSIS 01/03/24
aspirin 81 mg chewable tablet 81 mg PO DAILY Blood Clot Prevention/Tx 01/03/24
biotin 5 mg tablet 5 mg PO DAILY Supplement 01/03/24
calcium carbonate 500 mg-vitamin D3 10 mcg (400 unit) tablet (Calcium 500 + D) 1 tab PO BID Supplement 01/03/24
cholecalciferol (vitamin D3) 50 mcg (2,000 unit) chewable tablet 50 mcg PO DAILY Supplement 01/03/24
citalopram 10 mg tablet 20 mg PO DAILY Mental Health/Anxiety 01/03/24
coQ10 (ubiquinol) 200 mg capsule 200 mg PO BID Supplement 01/03/24
levothyroxine 25 mcg tablet 25 mcg PO DAILY Thyroid 01/03/24
lovastatin 20 mg tablet 20 mg PO QPM High Cholesterol 01/03/24
magnesium 200 mg tablet 200 mg PO DAILY Electrolyte Repletion 01/03/24
metoprolol succinate 25 mg tablet,extended release 24 hr 25 mg PO DAILY Blood Pressure 01/03/24
mirtazapine 7.5 mg tablet 7.5 mg PO BID Mental Health/Anxiety 01/03/24
multivitamin 1 tab PO DAILY Supplement 01/03/24
nystatin 100,000 unit/gram topical powder 1 applic topical DAILY Infection 01/03/24
omega 2-svm-wzn-fish oil 300 mg-1,000 mg capsule (Fish Oil) 1 cap PO BID Supplement 01/03/24
Home Medication Changes
Pending Results: No
Total time spent discharging patient (in min): 42
[2024-01-05 14:44] VITALS: BP 99/58
--- NOTE | 2024-01-05 15:24 | PTCARENOTE ---
report called this afternoon to [facility]. pt to be followed by hospice. pt's IV access discontinued and pt is being transferred via ambulance to facility. bed bath complete and moisture barrier applied to sacrum and jared area for prevention of
breakdown
== END 2024-01-05 15:32 | DRG 871 ==
LOC: 2 NORTH 05:13
PROVIDERS: ADMITTING PHYSICIAN Hospitalist; ATTENDING PHYSICIAN Internal Medicine; CONSULT PHYSICIAN Internal Medicine Critical Care Medicine; EMERGENCY PHYSICIAN Emergency Medicine; FAMILY PHYSICIAN Internal Medicine
DX: A41.9 Sepsis, unspecified organism (principal); R65.21 Severe sepsis with septic shock; F03.911 Unspecified dementia, unspecified severity, with agitation; E87.0 Hyperosmolality and hypernatremia; N17.9 Acute kidney failure, unspecified; N39.0 Urinary tract infection, site not specified; F03.93 Unspecified dementia, unspecified severity, with mood disturbance; E86.0 Dehydration; Z66 Do not resuscitate; E78.00 Pure hypercholesterolemia, unspecified; E03.9 Hypothyroidism, unspecified; I10 Essential (primary) hypertension; E86.1 Hypovolemia; M81.0 Age-related osteoporosis without current pathological fracture; J39.2 Other diseases of pharynx; R62.7 Adult failure to thrive; Z79.82 Long term (current) use of aspirin; Z79.890 Hormone replacement therapy; Z68.30 Body mass index [BMI] 30.0-30.9, adult; Z87.440 Personal history of urinary (tract) infections; Z11.52 Encounter for screening for COVID-19
CPT/HCPCS: 71045; 80048; 80053; 81003; 81015; 83605; 84439; 84443; 85025; 85027; 85610; 85730; 87070; 87086; 87811; 92526; 92610; 93005; 96360; 99285